=== PATIENT | male | born 1990 | race Two or more races ===

== ENCOUNTER 2016-07-03 08:58 | Emergency (ER) | payer OTHER ==
[2016-07-03] MEDS ORDERED: CEFAZOLIN 1 GM/DEXTROSE/50 ML BAG IV ONE (09:01)
[2016-07-03] MEDS ORDERED: ceFAZolin 2 GM in NS 100 ML IV ONE (09:05)
--- NOTE | 2016-07-03 09:33 | EDPHY ---
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 The gun discharged into his right palmar aspect of his thumb. This is a powdered powered nail gun. It is approximately a 27 gauge shell. The patient removed the cartridge and some metal object after the event. He is unsure if there is a foreign body present. He now has significant pain on his right thumb. This radiates up his forearm to his elbow. He has decreased sensation at his right thumb. EMS reports that the patient has some decreased sensation on their exam when initially evaluated him. Patient sustained no other injury. REVIEW OF SYSTEMS: My complete review of systems is negative except as mentioned in the HPI. Past Medical/Surgical History: Negative Past surgical history: Negative Social history: The patient does not smoke. Smoking Status: Never smoked Physical Exam: Vitals noted GENERAL: No acute distress, alert. HEENT: Eyes normal to inspection. NECK: Supple, no trauma RESPIRATORY: Clear to auscultation bilaterally, no respiratory distress. CVS: Regular rate and rhythm, no rubs, murmurs, or gallops. ABDOMEN: Soft, nontender. BACK: Normal to inspection, no visible trauma. SKIN: Normal color, no rash, warm, dry. No pallor. EXTREMITIES: Patient has an isolated injury to his right upper extremity. Patient is a 2 cm macerated laceration over his wrist palmar aspect of his right greater thenar eminence. There is notable swelling of the thenar eminence. Patient does not have any bony tenderness or deformity. Patient has brisk capillary refill in his thumb and other digits. Patient reports mildly decreased sensation in his thumb but it is present. Patient has no tenderness palpation over his wrist, forearm or elbow. There is no visible swelling, redness or streaking up the arm. Patient is able to move all of his digits, wrist, and elbow. NEURO/PSYCH: Alert and oriented, normal mood and affect, normal motor sensory exam. No obvious cranial nerve deficit. Constitutional: Initial Vital Signs Temperature (C) 37.2 C 07/03/16 09:09 Heart Rate 81 07/03/16 09:09 Respiratory Rate 17 07/03/16 09:09 Blood Pressure 143/86 H 07/03/16 09:09 O2 Sat (%) 98 07/03/16 09:09 O2 Delivery Mode Nasal Cannula O2 (L/minute) 2 Allergies/Adverse Reactions: No Known Allergies Allergy (Verified 07/03/16 09:09) Home Medications: Medication Instructions Recorded Cephalexin [Keflex (*)] 500 mg PO QID 10 Days 07/03/16 Hydrocodone/APAP 5/325 [[place] 1 - 2 tab PO Q4 #13 tab 07/03/16 5/325 (RX)] Medical Decision Making Procedures: Procedure: Laceration repair. Verbal consent was obtained from the patient. The [3 cm ] laceration on the right thenar eminence was anesthetized with 1% bupivacaine. The wound was cleaned with the [place] using copious high-pressure irrigation. The wound was draped and explored. No visible foreign body. There were no deep structures involved. No tendon injury was identified. The wound was repaired with 5 0 nylon. At the request of Dr. Frederick the wound was tacked together lightly with minimal number stitches. The wound repair was simple. The procedure was performed by myself. Procedure Ortho Glass thumb spica splint placed by machines technician. Post splint placement the patient was neurovascular intact distally. ED Course/Re-evaluation: In the emergency department I met EMS on arrival. I took report from the field marketing manager. I also took further information from the patient's Otoniel arrived to the emergency department. 901: Dr. Frederick and Dr. Bates were paged. Patient was given Ancef 2 g IV. His tetanus vaccination is up-to-date. 910: Dr. Bates came to the emergency department evaluated the patient. He felt this was appropriate consult for hand surgery. 911: I discussed the case with Dr. Frederick. I am awaiting x-ray results. I reviewed the images. There is no visible foreign body. I discussed this finding with Dr. Frederick. He recommended the patient have his wound clean in the emergency department. He recommends a single suture be placed. The patient should be placed in a splint and follow up with his office. Patient's wound was repaired. The wound was dressed. A thumb spica splint was placed. I answered all his questions. He is aware he needs follow-up with Orthopedics today. He also is aware he needs to take his entire course of antibiotics. Differential Diagnosis: My differential includes but is not limited to fracture, foreign body, ligamentous injury, vascular injury, nerve injury. Patient had a nail gun discharge over his greater thenar eminence. I am concerned with over pressure is a alex from the discharge. I have considered deep structure injury tracking up the forearm. There is no visible foreign body on x-ray. Patient has brisk capillary refill on exam. He has mildly decreased sensation over his thumb. Dr. Frederick recommends outpatient treatment and further evaluation by his service. I discussed this with Dr. Bates from the trauma service. He agrees with this plan. - Data Points Medications Given: Discontinued Medications Cefazolin Sodium 2 gm/ Sodium (Chloride) 100 mls @ 200 mls/hr IV EDNOW ONE PRN Reason: Protocol Stop: 07/03/16 09:34 Last Admin: 07/03/16 09:05 Dose: 100 mls Departure - Departure Disposition: Home, Routine, Self-Care Clinical Impression: Thumb laceration Qualifiers: Encounter type: initial encounter Laterality: right Qualifier Code: (S61.011A) Laceration without foreign body of right thumb without damage to nail, initial encounter Condition: Good Instructions: Laceration (ED) Referrals: Hamida Frederick MD [Medical Doctor] - 07/03/16 10:53 am Prescriptions: Cephalexin [Keflex (*)] 500 mg PO QID 10 Days Hydrocodone/APAP 5/325 [[place] 5/325 (RX)] 1 - 2 tab PO Q4 #13 tab
--- NOTE | 2016-07-03 10:10 | DX ---
Right Hand, Right Forearm, and Right Elbow Clinical History: 25-year-old male who sustained a nail gun injury to the hand with a laceration betw een the first and second digits. Comparison Study: None. Findings RIGHT HAND (3 Views, at 9:10 AM): There is some soft tissue swelling and increased attenuation betwee n the first and second digits, but no radiopaque foreign body, fracture, or dislocation. Impression: Soft tissue injury, with no acute osseous abnormality or radiopaque foreign body. RIGHT FOREARM (AP and Lateral Views, at 9:08 AM): There is no fracture, dislocation, or radiopaque fo reign body. Impression: Negative. RIGHT ELBOW (3 Views, at 9:13 AM): There is no fracture, dislocation, elbow joint effusion, or radiop aque foreign body. Impression: Negative.
[2016-07-03] MEDS ORDERED: CEPHALEXIN 500MG PREPACK#4 BTL TAKEHOME ONE (10:54)
[2016-07-03 11:46] VITALS: BP 112/73; PULSE 71; RESP 14; TEMP 98.4; O2SAT 96
--- NOTE | 2016-07-03 16:10 | GCON ---
[f rep st] CONSULTATION HISTORY: Marcos Kahn is a 25-year-old male whose tetanus is up to date. He was wearing a glove today. A 27 caliber cement nail gun went off, penetrating his right thenar eminence. Initia lly, it is unclear but he pulled the nail out. He presented to the ER as a limited trauma. His capi llary refill is less than 2 seconds on digits 2 and 3. It is approximately 3 seconds on the thumb. There is swelling on the palmar surface and the thenar eminence. This was not a through and through issue. X-ray showed no retained foreign body. This is an isolated issue. It will be referred to Dr. Frederick (hand surgery) for his evaluation. /[id number]/MODL
== END 2016-07-03 11:30 | disposition home or self-care (01) ==
LOC: EDUNIT#
PROC: 0HQFXZZ Repair Right Hand Skin, External Approach (ICD-10-PCS; principal; 2016-07-03)
DX: S61.011A Laceration without foreign body of right thumb without damage to nail, initial encounter (principal); W29.4XXA Contact with nail gun, initial encounter
CPT/HCPCS: 96365; J0690